=== PATIENT | male | born 1955 | race Native Hawaiian/Other Pacific Islander ===

== ENCOUNTER 2016-12-22 08:11 | Outpatient (CLI) | payer BC ==
[~2016-12-22 08:11] MED LIST: AMLO2.5T PO; GLUMETZA500 MG PO; HYZAAR1 TA2 PO; LEVEMIR FL100 UNIT/M SC; MELOXICAM15 MG OR; VICTOZA18 MG/3 ML SC
[2016-12-22 08:58] LABS: PLATELET COUNT 243 K/uL (142-355)
[2016-12-22 10:07] LABS: POTASSIUM 3.8 mmol/L (3.6-5.2); SODIUM 138 mmol/L (136-145)
== END 2016-12-22 09:15 | disposition home or self-care (01) ==
LOC: LABW 08:11
PROVIDERS: Internal Medicine Cardiovascular Disease
DX: E78.4 Other hyperlipidemia (principal); Z79.899 Other long term (current) drug therapy; Z51.81 Encounter for therapeutic drug level monitoring; E11.9 Type 2 diabetes mellitus without complications
CPT/HCPCS: 36415; 80053; 80061; 81000; 82043; 82248; 82570; 83036; 84439; 84443; 85027

== ENCOUNTER 2018-08-15 09:08 | Outpatient (CLI) | payer BC ==
[2018-08-15 09:53] LABS: PLATELET COUNT 228 K/uL (142-355)
[2018-08-15 10:04] LABS: POTASSIUM 4.5 mmol/L (3.6-5.2)
== END 2018-08-15 21:41 | disposition home or self-care (01) ==
LOC: LABW 09:08
PROVIDERS: Internal Medicine Cardiovascular Disease
DX: E78.5 Hyperlipidemia, unspecified (principal); Z79.899 Other long term (current) drug therapy
CPT/HCPCS: 36415; 80053; 80061; 85027

== ENCOUNTER 2018-09-27 09:19 | Outpatient (CLI) | payer BC | END 2018-09-27 23:19 | disposition home or self-care (01) | LOC: RAD 09:19 | DX: M25.511 Pain in right shoulder (principal) ==

== ENCOUNTER 2018-10-29 08:23 | Outpatient (CLI) | payer BC | END 2018-10-29 19:43 | disposition home or self-care (01) | LOC: RESP 08:23 | DX: R20.9 Unspecified disturbances of skin sensation (principal); G56.03 Carpal tunnel syndrome, bilateral upper limbs ==

== ENCOUNTER 2019-06-16 07:35 | Outpatient (CLI) | payer BC ==
[~2019-06-16] VITALS: Ht 180.3 cm; Wt 143.3 kg
== END 2019-06-16 19:03 | disposition home or self-care (01) ==
LOC: NM 07:35
DX: R07.9 Chest pain, unspecified (principal)
CPT/HCPCS: A9500; J2785

== ENCOUNTER 2022-03-28 10:54 | Outpatient (CLI) | payer BC ==
[~2022-03-28 10:54] MED LIST changes: +AMLODIPINE BESYLATE PO; +AMOXICILLIN PO; +ASPIR-8181 MG PO; +CIPROFLOXACIN500 M1 PO; +CLA PO; +INSU300I SC; +METO50TA27 PO; +REPATHA SUR140 MG/ML SC
== END 2022-03-28 20:13 | disposition home or self-care (01) ==
LOC: US 10:54
PROVIDERS: ATTEND Internal Medicine
DX: M79.662 Pain in left lower leg (principal); M25.562 Pain in left knee

== ENCOUNTER 2022-06-23 09:19 | Outpatient (CLI) | payer BC ==
[2022-06-23 09:55] LABS: PLATELET COUNT 238 K/uL (142-355)
[2022-06-23 10:00] LABS: POTASSIUM 3.5 mmol/L (3.6-5.2)
== END 2022-06-23 21:19 | disposition home or self-care (01) ==
LOC: LABW 09:19
PROVIDERS: ATTEND Internal Medicine Cardiovascular Disease
DX: Z79.899 Other long term (current) drug therapy (principal); E78.49 Other hyperlipidemia
CPT/HCPCS: 36415; 80053; 80061; 85027

== ENCOUNTER 2022-08-23 07:53 | Outpatient (CLI) | payer BC ==
[2022-08-23 08:18] LABS: PLATELET COUNT 226 K/uL (142-355)
[2022-08-23 09:26] LABS: POTASSIUM 3.6 mmol/L (3.6-5.2)
== END 2022-08-23 19:07 ==
LOC: LABW 07:53
PROVIDERS: ATTEND Internal Medicine
DX: E11.9 Type 2 diabetes mellitus without complications (principal)
CPT/HCPCS: 36415; 80053; 80061; 81002; 83036; 84439; 84443; 85027

== ENCOUNTER 2023-01-18 15:18 | Outpatient (CLI) | payer BC | END 2023-01-18 18:29 | disposition home or self-care (01) | LOC: RAD 15:18 | PROVIDERS: ATTEND Internal Medicine | DX: M25.552 Pain in left hip (principal) ==